=== PATIENT | male | born 1945 | race Caucasian/White ===

== ENCOUNTER → 2024-09-07 09:55 | Outpatient (REF) | payer MEDICARE, OTHER, SELFPAY | LOC: RAD 09:55 | PROVIDERS: ATTENDING PHYSICIAN Hospitalist | DX: R05.3 Chronic cough (principal); R06.09 Other forms of dyspnea | CPT/HCPCS: 71046 ==

== ENCOUNTER → 2024-09-18 14:46 | Outpatient (REF) | payer MEDICARE, OTHER, SELFPAY | LOC: HWRAD 14:46 | PROVIDERS: ATTENDING PHYSICIAN Hospitalist | DX: J18.9 Pneumonia, unspecified organism (principal) | CPT/HCPCS: 71250 ==